=== PATIENT | female | born 1995 | race Caucasian/White ===

== ENCOUNTER 2017-10-29 15:04 | Emergency (ER) | payer SELFPAY ==
[~2017-10-29] VITALS: Ht 170.2 cm; Wt 117.9 kg
[2017-10-29 15:28] VITALS: BP 141/96
[2017-10-29] MEDS ORDERED: ACETAMINOPHEN 500 MG TAB PO ONE (19:00)
[2017-10-29] MEDS ORDERED: IBUPROFEN 800 MG TAB PO ONE (19:00)
== END 2017-10-29 20:26 | disposition home or self-care (01) ==
LOC: ER 15:11
DX: H61.21 Impacted cerumen, right ear (principal); H66.91 Otitis media, unspecified, right ear